=== PATIENT | male | born 1980 | race Caucasian/White ===

== ENCOUNTER 2017-11-25 15:53 | Emergency (ER) | payer OTHER ==
[2017-11-25] MEDS ORDERED: Ketorolac INJ* 60 MG/2 ML VIAL IM ONE (18:17)
--- NOTE | 2017-11-25 18:30 | RAD ---
HISTORY: Right knee injury COMPARISONS: MRI dated January 22, 2004 VIEWS: 4, Frontal, lateral, axial, and oblique views of the right knee FINDINGS: BONE DENSITY: Normal. BONES: There is post surgical change to the proximal tibia. JOINTS: There is no arthropathy. There is no suprapatellar joint effusion or lipohemarthrosis. ALIGNMENT: There is no dislocation. SOFT TISSUES: Unremarkable. OTHER FINDINGS: None. IMPRESSION: POST SURGICAL CHANGE. NO ACUTE OSSEOUS INJURY. IF SYMPTOMS PERSIST, RECOMMEND REPEAT IMAGING.
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
[2017-11-25 19:19] VITALS: BP 153/73
== END 2017-11-25 19:18 | disposition home or self-care (01) ==
LOC: ED 15:53
DX: M25.561 Pain in right knee (principal); R03.0 Elevated blood-pressure reading, without diagnosis of hypertension; Z98.890 Other specified postprocedural states; Z88.1 Allergy status to other antibiotic agents; F17.200 Nicotine dependence, unspecified, uncomplicated
CPT/HCPCS: 96372; 99282; J1885

== ENCOUNTER 2019-08-20 13:50 | Emergency (ER) | payer OTHER ==
[2019-08-20 14:03] VITALS: BP 137/87
--- NOTE | 2019-08-20 14:53 | UC ---
General HPI - HPI Summary HPI Summary: 39 yo gentleman c/o swollen"pimple" getting worse over the last couple days, inner L nostril. Now feels pain in nose and L cheek. No fever / chills. - History of Current Complaint Chief Complaint: UCSkin Stated Complaint: SWOLLEN INSIDE OF NOSE Hx Obtained From: Patient Pain Intensity: 8 - Allergy/Home Medications Allergies/Adverse Reactions: Allergies Allergy/AdvReac Type Severity Reaction Status Date / Time erythromycin base Allergy Unknown Verified 01/08/18 13:52 Reaction Details Home Medications: Home Medications Amitriptyline TAB* [Elavil TAB*] 50 mg PO BEDTIME 08/20/19 [History Confirmed ] Buprenorp/Nalox 8-2 MG SL TAB [Suboxone 8-2 mg SL TAB*] 1 tab.sl SL BID [History Confirmed 08/20/19] tiZANidine TAB* [Zanaflex TAB*] 4 mg PO BEDTIME 08/20/19 [History Confirmed ] PMH/Surg Hx/FS Hx/Imm Hx Previously Healthy: Yes - Surgical History Surgical History: Yes Surgery Procedure, Year, and Place: R KNEE ACL,HERNIA A CHILD - Family History Known Family History: Positive: Hypertension - Social History Alcohol Use: Occasionally Substance Use Type: Marijuana Substance Use Comment - Amount & Last Used: every other day Smoking Status (MU): Light Every Day Tobacco Smoker Amount Used/How Often: 1 can/ every other day When Did the Patient Quit Smoking/Using Tobacco: hasnt smoked in 1 month Review of Systems All Other Systems Reviewed And Are Negative: Yes Constitutional: Positive: Negative Skin: Positive: Other - see hpi Eyes: Positive: Negative ENT: Positive: Other - see hpi Respiratory: Positive: Negative Cardiovascular: Positive: Negative Gastrointestinal: Positive: Negative Genitourinary: Positive: Negative Motor: Positive: Negative Neurovascular: Positive: Negative Musculoskeletal: Positive: Negative Neurological: Positive: Negative Psychological: Positive: Negative Is Patient Immunocompromised?: No Physical Exam Triage Information Reviewed: Yes Appearance: Well-Appearing, Well-Nourished Vital Signs: Initial Vital Signs Temp 98.7 F 08/20/19 13:58 Pulse 99 08/20/19 13:58 Resp 18 08/20/19 13:58 BP 137/87 08/20/19 13:58 Pulse Ox 96 08/20/19 13:58 Vital Signs Reviewed: Yes Eye Exam: Normal ENT: Positive: Pharynx normal, TM dull - dull, booker au. eac's ok, Uvula midline , Other - L inner outside nare with + swellling, redness, central white area noted. + tender. Lateral portion of nose is tender, a little red, slight inc wtt. No crepitus, dark discoloration. Neck exam: Normal Respiratory Exam: Normal Cardiovascular Exam: Normal Abdominal Exam: Normal Musculoskeletal Exam: Normal Neurological Exam: Normal Psychological Exam: Normal Skin Exam: Other - see ent o/w nad Course/Dx - Course Course Of Treatment: L folliculitis with early cellulitis. Advised not to pick at it, or try to pop it Reviewed meds / allergies. Reviewed coa / tx plan. See avs. To ED if worse. Quetions answered as posed to the best of my ability. - Diagnoses Provider Diagnosis: Folliculitis, Cellulitis Discharge ED - Sign-Out/Discharge Documenting (check all that apply): Patient Departure All imaging exams completed and their final reports reviewed: No Studies - Discharge Plan Condition: Stable Disposition: HOME Prescriptions: Ibuprofen TAB* [Motrin TAB* 600 MG] 600 mg PO Q8H PRN #30 tab PRN Reason: Pain Mupirocin 2% OINT* [Bactroban 2 % Oint*] 1 applic TOPICAL BID 10 Days #1 tube Sulfamethox/Trimethoprim DS* [Bactrim DS 800/160 TAB*] 1 tab PO BID #20 tab Patient Education Materials: Cellulitis (ED), Folliculitis (ED) Referrals: Leny Porter MD [Primary Care Provider] - Additional Instructions: Please follow up with your primary care physician THIS WEEK. Please GO TO THE EMERGENCY DEPARTMENT if any worse. Hydrate. Yogurt and / or probiotic daily while taking antibiotic. - Billing Disposition and Condition Condition: STABLE Disposition: Home
--- NOTE | 2019-08-22 15:55 | UC ---
- Progress Note Progress Note: Wound culture revealed normal flynn. Patient diagnosed with folliculitis and cellulitis and treated with Bactrim, so should remain on antibiotics as prescribed. Kasia Darden PA-C 08/22/19 1554 Course/Dx - Diagnoses Provider Diagnoses: Folliculitis, Cellulitis Discharge ED - Sign-Out/Discharge Documenting (check all that apply): Post-Discharge Follow Up All imaging exams completed and their final reports reviewed: No Studies - Discharge Plan Condition: Stable Disposition: HOME Prescriptions: Ibuprofen TAB* [Motrin TAB* 600 MG] 600 mg PO Q8H PRN #30 tab PRN Reason: Pain Mupirocin 2% OINT* [Bactroban 2 % Oint*] 1 applic TOPICAL BID 10 Days #1 tube Sulfamethox/Trimethoprim DS* [Bactrim DS 800/160 TAB*] 1 tab PO BID #20 tab Patient Education Materials: Cellulitis (ED), Folliculitis (ED) Referrals: Leny Porter MD [Primary Care Provider] - Additional Instructions: Please follow up with your primary care physician THIS WEEK. Please GO TO THE EMERGENCY DEPARTMENT if any worse. Hydrate. Yogurt and / or probiotic daily while taking antibiotic. - Billing Disposition and Condition Condition: STABLE Disposition: Home
== END 2019-08-20 15:32 | disposition home or self-care (01) ==
LOC: UCEAST 13:50
DX: J34.0 Abscess, furuncle and carbuncle of nose (principal); L73.8 Other specified follicular disorders; F17.290 Nicotine dependence, other tobacco product, uncomplicated; Z88.1 Allergy status to other antibiotic agents
CPT/HCPCS: 87070; 87205; 87640; 87641; 99212; G0463